=== PATIENT | male | born 1985 | race Caucasian/White ===

== ENCOUNTER 2017-07-28 17:34 | Emergency (ER) | payer SELFPAY ==
[~2017-07-28] VITALS: Ht 172.7 cm; Wt 75.0 kg
[2017-07-28 20:01] LABS: BASOPHILS % 0.6 % (0.0-2.0); EOSINOPHILS % 2.3 % (0.0-5.0); HEMOGLOBIN. 13.6 g/dL (14.0-18.0); LYMPHOCYTES % 26.6 % (20.0-50.0); MEAN CORPUSCULAR HEMOGLOBIN 32.5 pg (28.0-32.0); MEAN CORPUSCULAR VOLUME 93.4 fL (80.0-94.0); MEAN PLATELET VOLUME 7.9 fl (7.4-10.4); MONOCYTES % 6.6 % (2.0-8.0); NEUTROPHILS % 63.9 % (40.0-76.0); PLATELET 245 x1000/uL (130-400); RED BLOOD CELL COUNT 4.18 mill/uL (4.7-6.1); RED CELL DISTRIBUTION WIDTH 12.7 % (11.6-14.6)
[2017-07-28 20:04] LABS: CARBON DIOXIDE 23 mEq/L (21-32); CHLORIDE 107 mEq/L (98-107)
[2017-07-28 20:05] LABS: TROPONIN I < 0.02 ng/mL (0.00-0.04)
[2017-07-28] MEDS ORDERED: POTASSIUM CHLORIDE 20MEQ TABLET SR PO ONE (20:15)
[2017-07-28 20:43] VITALS: BP 129/85
== END 2017-07-28 20:47 | disposition home or self-care (01) ==
LOC: ER 17:34 → EDSEX 17:34 → ER 20:47
DX: E87.6 Hypokalemia (principal); R53.1 Weakness; R20.0 Anesthesia of skin; Z76.5 Malingerer [conscious simulation]
CPT/HCPCS: 36415; 70450; 80053; 84484; 85025; 93005; 99285